=== PATIENT | male | born 1990 | race Caucasian/White ===

== ENCOUNTER 2018-03-24 07:05 | Emergency (ER) | payer MEDICAID ==
[2018-03-24 07:09] VITALS: BP 147/85
--- NOTE | 2018-03-24 07:17 | EDPHY ---
H & P Time Seen by Provider: 03/24/18 07:09 HPI/ROS: Chief complaint. Med clearance HPI. Patient is 27-year-old male here with [facility] for med clearance to go to longterm. Patient sustained abrasions during his arrest. He did sustain abrasion to the top this head. However no loss of consciousness. No neck pain or back pain. However he does tell me he hurts everywhere. Denies chest discomfort or trouble breathing. Chronic abdominal pain that is not different. He has been ambulatory. He is not on blood thinners. ROS Constitutional. no fever/chills, no weakness Eyes. no problems with vision ENT. no sore throat, no nasal drainage Cardiovascular. no chest pain Respiratory. no shortness of breath, no cough Abdominal. no abdominal pain, no nausea/vomiting, no diarrhea . no problems urinating MS. no calf pain/swelling, no neck/back pain, no joint pain Skin. Abrasion to top of head, right elbow, left knee Lymph. no swollen glands Neuro. no headache, no dizziness, no difficulty walking or with speech Past Medical/Surgical History: Past medical history is significant for PTSD , bipolar, attention deficit hyperactivity disorder Social History: , daily smoker, no alcohol Smoking Status: Current every day smoker Physical Exam: General Appearance: Alert well-developed male mild distress vital signs are stable Eyes: Pupils equal and round no pallor or injection. ENT, no hemotympanum or Rai sign. No oral pharyngeal or dental trauma. Respiratory: There are no retractions, lungs are clear to auscultation. Cardiovascular: Regular rate and rhythm. Gastrointestinal: Abdomen is soft and nontender, no masses, bowel sounds normal. Neurological: Awake and alert, sensory and motor exams grossly normal. Skin: Abrasion right elbow and left knee. Erythema to the top of his scalp Musculoskeletal: No C, T, L, S spine tenderness Extremities symmetrical, full range of motion. Psychiatric: Patient is oriented X 3, there is no agitation. Constitutional: Initial Vital Signs Temperature (C) 36.7 C 03/24/18 07:08 Heart Rate 87 03/24/18 07:08 Respiratory Rate 16 03/24/18 07:08 Blood Pressure 147/85 H 03/24/18 07:08 O2 Sat (%) 96 03/24/18 07:08 O2 Delivery Mode Room Air Allergies/Adverse Reactions: No Known Allergies Allergy (Unverified 01/12/16 19:21) Home Medications: Medication Instructions Recorded Clonidine 03/24/18 Seroquel 03/24/18 Medical Decision Making ED Course/Re-evaluation: Abrasions are cleaned and dressed Patient remained stable without evidence of head injury. Differential Diagnosis: I considered closed head injury, fracture, dislocation, thoracic trauma Departure - Departure Disposition: Law Enforcement/Court/Nursing Home Clinical Impression: Multiple abrasions Condition: Good Instructions: Abrasion (ED) Additional Instructions: Ice to sore areas next 24 hr. Tylenol 1000 mg every 4-6 hours, ibuprofen 600 mg every 6 hr for discomfort. Return for worsening symptoms Referrals: NONE *PRIMARY CARE P,. [Primary Care Provider] - As per Instructions [facility]. [Clinic] - 2-3 days, if not improved
== END 2018-03-24 07:30 ==
DX: S00.91XA Abrasion of unspecified part of head, initial encounter (principal); S50.311A Abrasion of right elbow, initial encounter; S80.212A Abrasion, left knee, initial encounter; Y35.93XA Legal intervention, means unspecified, suspect injured, initial encounter